=== PATIENT | female | born 1950 | race Hispanic/Latino ===

== ENCOUNTER → 2017-05-31 | Outpatient (CLI) | payer MEDICARE | END | disposition home or self-care (01) | LOC: RAH 08:00 | PROVIDERS: ATTEND Internal Medicine Gastroenterology | DX: K74.3 Primary biliary cirrhosis (principal) | CPT/HCPCS: 76700 ==

== ENCOUNTER 2018-05-27 17:05 | Emergency (ER) | payer MEDICARE ==
[2018-05-27] MEDS ORDERED: ACETAMINOPHEN-CODEINE 300/30MG TAB ONE (17:59)
== END 2018-05-27 19:01 | disposition home or self-care (01) ==
LOC: EDH 17:05
DX: S82.092A Other fracture of left patella, initial encounter for closed fracture (principal); S63.591A Other specified sprain of right wrist, initial encounter; S63.8X1A Sprain of other part of right wrist and hand, initial encounter; I10 Essential (primary) hypertension; E78.5 Hyperlipidemia, unspecified; W01.0XXA Fall on same level from slipping, tripping and stumbling without subsequent striking against object, initial encounter; Y93.01 Activity, walking, marching and hiking; Y92.89 Other specified places as the place of occurrence of the external cause; Y99.8 Other external cause status
CPT/HCPCS: 29125; 29505; 73110; 73562

== ENCOUNTER → 2018-06-27 | Outpatient (CLI) | payer MEDICARE | END | disposition home or self-care (01) | LOC: RAH 08:03 | PROVIDERS: ATTEND Internal Medicine Gastroenterology | DX: K75.4 Autoimmune hepatitis (principal); K74.3 Primary biliary cirrhosis | CPT/HCPCS: 76700; 93975 ==

== ENCOUNTER → 2021-01-05 | Outpatient (CLI) | payer OTHER, MEDICARE ==
[~2021-01-05] MED LIST: CALC-877 PO; MV-M1TAB55 PO; URSO500T10 PO; VITAMIN D
== END | disposition home or self-care (01) ==
LOC: RAH 07:33
PROVIDERS: ATTEND Internal Medicine Gastroenterology
DX: K74.3 Primary biliary cirrhosis (principal); R16.1 Splenomegaly, not elsewhere classified
CPT/HCPCS: 76700; 93975

== ENCOUNTER → 2021-09-20 | Outpatient (CLI) | payer OTHER, MEDICARE | END | disposition home or self-care (01) | LOC: RAH 07:30 | PROVIDERS: ATTEND Internal Medicine Gastroenterology | DX: K74.3 Primary biliary cirrhosis (principal); I70.8 Atherosclerosis of other arteries | CPT/HCPCS: 76700; 93975 ==